=== PATIENT | female | born 2005 | race Caucasian/White ===

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

== ENCOUNTER 2025-03-29 10:07 | Outpatient (CLI) | payer OTHER | END 2025-03-29 10:08 | disposition home or self-care (01) | LOC: SCSMRI 10:07 | PROVIDERS: ATTEND Orthopaedic Surgery | DX: M25.571 Pain in right ankle and joints of right foot (principal); M08.00 Unspecified juvenile rheumatoid arthritis of unspecified site; S93.491A Sprain of other ligament of right ankle, initial encounter; S93.411A Sprain of calcaneofibular ligament of right ankle, initial encounter; M25.471 Effusion, right ankle; S90.01XA Contusion of right ankle, initial encounter ==